=== PATIENT | male | born 1980 | race Caucasian/White ===

== ENCOUNTER 2021-04-21 13:15 | Emergency (ER) | payer SELFPAY ==
[~2021-04-21] VITALS: Ht 180.3 cm; Wt 77.3 kg
[2021-04-21 15:55] LABS: BASOPHILS % (AUTO) 0.4 % (0-1); EOSINOPHILS # (AUTO) 0.1 X10'3 (0-0.9); EOSINOPHILS % (AUTO) 1.3 % (0-6); HEMATOCRIT 47.1 % (42.0-52.0); HEMOGLOBIN 16.6 g/dl (14.0-17.9); LYMPHOCYTES # (AUTO) 1.9 X10'3 (1.1-4.8); LYMPHOCYTES % (AUTO) 24.5 % (21-51); MEAN CORPUSCULAR HEMOGLOBIN 32.3 PG (27.0-31.0); MEAN CORPUSCULAR HGB CONC 35.3 g/dL (33.0-36.5); MEAN CORPUSCULAR VOLUME 91.5 FL (78-98); MEAN PLATELET VOLUME 8.7 FL (7.4-10.4); MONOCYTES # (AUTO) 0.5 X10'3 (0-0.9); MONOCYTES % (AUTO) 6.7 % (2-12); NEUTROPHILS # (AUTO) 5.2 X10'3 (1.8-7.7); NEUTROPHILS % (AUTO) 67.1 % (42-75); PLATELET COUNT 240 X10'3 (140-440); RED BLOOD COUNT 5.15 X10'6 (4.70-6.10); RED CELL DISTRIBUTION WIDTH 12.9 % (11.5-14.5); WHITE BLOOD COUNT 7.8 X10'3 (4.5-11.0)
[2021-04-21 16:08] LABS: ALANINE AMINOTRANSFERASE 36 U/L (12-78); ALBUMIN 4.3 G/DL (3.4-5.0); ALBUMIN/GLOBULIN RATIO 1.3 (1.1-1.5); ALKALINE PHOSPHATASE 61 IU/L (46-116); ANION GAP 9 (8-16); ASPARTATE AMINO TRANSFERASE 19 U/L (10-37); BILIRUBIN,TOTAL 0.7 MG/DL (0.1-1.0); BLOOD UREA NITROGEN 15 MG/DL (7-18); CALCIUM 8.8 MG/DL (8.5-10.1); CHLORIDE 103 MMOL/L (99-107); CREATININE 0.88 MG/DL (0.60-1.10); GLUCOSE 85 MG/DL (70-104); POTASSIUM 4.4 MMOL/L (3.5-5.1); SODIUM 140 MMOL/L (135-145); TOTAL CARBON DIOXIDE 28.5 MMOL/L (24-32); TOTAL PROTEIN 7.7 G/DL (6.4-8.2); eGFR > 90 ML/MIN
[2021-04-21 16:39] VITALS: BP 116/72
[2021-04-21 17:06] LABS: C-REACTIVE PROTEIN 0.08 MG/DL (0.0-0.5)
[2021-04-21] MEDS ORDERED: iohexol 300mg/ml 100ml inj. ONE (17:06)
== END 2021-04-21 18:11 | disposition home or self-care (01) ==
LOC: ER 13:15
DX: R22.1 Localized swelling, mass and lump, neck (principal)
CPT/HCPCS: 36415; 70491; 80053; 85025; 85651; 86140; 99285; Q9967

== ENCOUNTER 2022-02-13 06:09 | Day surgery (SDC) | payer MEDICAID ==
[2022-02-10 11:53] LABS: BASOPHILS % (AUTO) 0.6 % (0-1); EOSINOPHILS # (AUTO) 0.1 X10'3 (0-0.9); EOSINOPHILS % (AUTO) 1.6 % (0-6); LYMPHOCYTES # (AUTO) 1.6 X10'3 (1.1-4.8); LYMPHOCYTES % (AUTO) 21.7 % (21-51); MEAN CORPUSCULAR HEMOGLOBIN 31.5 PG (27.0-31.0); MEAN CORPUSCULAR HGB CONC 34.8 g/dL (33.0-36.5); MEAN CORPUSCULAR VOLUME 90.5 FL (78-98); MEAN PLATELET VOLUME 8.6 FL (7.4-10.4); MONOCYTES # (AUTO) 0.6 X10'3 (0-0.9); MONOCYTES % (AUTO) 7.3 % (2-12); NEUTROPHILS # (AUTO) 5.2 X10'3 (1.8-7.7); NEUTROPHILS % (AUTO) 68.8 % (42-75); PRE OP HEMATOCRIT 45.2 % (42.0-52.0); PRE OP HEMOGLOBIN 15.7 g/dL (14.0-17.9); PRE OP PLATELET COUNT 215 X10'3 (140-440); RED BLOOD COUNT 4.99 X10'6 (4.70-6.10); RED CELL DISTRIBUTION WIDTH 12.3 % (11.5-14.5)
[2022-02-10 12:05] LABS: ALBUMIN/GLOBULIN RATIO 1.1 (1.1-1.5); ALKALINE PHOSPHATASE 78 IU/L (46-116); BLOOD UREA NITROGEN 14 MG/DL (7-18); BUN/CREATININE RATIO 13.5 (5.4-32.0); CALCIUM 8.7 MG/DL (8.5-10.1); CHLORIDE 102 MMOL/L (99-107); CREATININE 1.04 MG/DL (0.60-1.10); PRE OP ALT 21 U/L (30-65); PRE OP ANION GAP 8 (8-16); PRE OP AST 15 U/L (10-37); PRE OP BILIRUB, TOTAL 0.4 MG/DL (0.0-1.0); PRE OP GLUCOSE 87 MG/DL (70-104); PRE OP POTASSIUM 4.1 MMOL/L (3.4-5.1); PRE OP SODIUM 139 MMOL/L (135-145); TOTAL CARBON DIOXIDE 28.8 MMOL/L (24-32); TOTAL PROTEIN 7.5 G/DL (6.4-8.2); eGFR 80 ML/MIN
[2022-02-13] VITALS (11 sets, daily range): BP systolic 108–162; BP diastolic 66–107
[~2022-02-13] VITALS: Ht 180.3 cm; Wt 77.2 kg
[~2022-02-13 06:09] MED LIST: HYDR-3972; ceFAZolin inj. 2,000 MG in dextrose 5%-water 100 ML IV ONE; famotidine 20mg tablet PO ONE; ringers solution, lacted 1,000 ML IV SCH
[2022-02-13] MEDS ORDERED: BUPIVAcaine/PF 2.5 mg/ml (0.25%) 30ml vial ONE (06:34)
[2022-02-13] MEDS ORDERED: ringers solution, lacted 1,000 ML IV SCH (06:45)
[2022-02-13] MEDS ORDERED: hydrALAZINE 20mg/ml inj. IV PRN (06:45)
[2022-02-13] MEDS ORDERED: morphine 2 MG/ML inj. syringe IV PRN (06:45)
[2022-02-13] MEDS ORDERED: fentaNYL/PF 50MCG/1 ML 2ML syringe IV PRN ×2 (06:45)
[2022-02-13] MEDS ORDERED: morphine 4 MG/ML inj SYRINge IV PRN (06:45)
[2022-02-13] MEDS ORDERED: ondansetron/PF 4mg/2ml inj IV PRN (06:45)
[2022-02-13] MEDS ORDERED: labetalol 20mg/4ml (5mg/ml) syringe IV PRN (06:45)
[2022-02-13 07:42] LABS: CLARITY,URINE CLEAR (Clear); COLOR,URINE YELLOW (Yellow); GLUCOSE, URINE NEGATIVE (Neg); KETONES,URINE NEGATIVE (Neg); LEUKOCYTE ESTERASE ,URINE NEGATIVE (Neg); NITRITES, URINE NEGATIVE (Neg); OCCULT BLOOD,URINE NEGATIVE (Neg); PROTEIN,URINE NEGATIVE (Neg); UROBILINOGEN,URINE 0.2 E.U/dL (0.2-1.0)
[2022-02-13 07:48] LABS: UA COLLECTION TYPE CLN CATCH MIDSTREAM
[2022-02-13] MEDS ORDERED: fentaNYL/PF 50MCG/1 ML 2ML syringe ONE (07:48)
[2022-02-13] MEDS ORDERED: MIDAZolam 1 MG/ML 5ML VIAL ONE (07:48)
[2022-02-13] MEDS ORDERED: acetaminophen 1,000mg/100ml IV 100 ML IV ONE (07:48)
[2022-02-13] MEDS ORDERED: LIDOcaine 2% (20mg/ml) 5ml vial ONE (07:49)
[2022-02-13] MEDS ORDERED: ondansetron/PF 4mg/2ml inj ONE (07:49)
[2022-02-13] MEDS ORDERED: propofol inj 20 ML IV ONE (07:49)
[2022-02-13 07:58] LABS: PRE OP PROTIME 10.5 SECONDS (9.0-12.0)
[2022-02-13] MEDS ORDERED: sevoflurane 250ml liquid IH ONE (08:28)
[2022-02-13] MEDS ORDERED: dexamethasone sod phosphate 10mg/ml inj ONE (08:28)
--- NOTE | 2022-02-13 10:19 | NUR ---
Received from OR via [facility], accompanied by Anesthesiologist DR LOPEZ and report given by Anesthesiolgist. PT PRESENTS WITH PIV 20G LEFT HAND. DRESSING ON LEFT AXILLARY CDI, VSS. Addendum: 02/13/22 at 1032 by Clarissa Burrows RN, RN Amended: Links added.
--- NOTE | 2022-02-13 11:23 | NUR ---
PT SITTIN UP ON BED EATING RENU CRACKERS AND DRINKING WATER.
[2022-02-13] MEDS ORDERED: HYDROcodone/acetaminophen 10/325mg tab PO ONE (11:30)
--- NOTE | 2022-02-13 11:49 | NUR ---
ALL DISCHARGE CRITERIA HAS BEEN MET. VSS, PAIN AT A TOLERABLE LEVEL, VOIDING AND ABLE TO SAFELY AMBULATE AND TRANSFER SELF. IV TAKEN OUT WITHOUT ANY COMPLICATIONS. ALL DISCHARGE INSTRUCTIONS COVERED WITH PATIENT AND ALL QUESTIONS ANSWERED. PATIENT TAKEN OUT VIA WHEELCHAIR TO PERSONAL VEHICLE WHERE FAMILY/FRIEND DROVE PATIENT HOME. Addendum: 02/13/22 at 1204 by Clarissa Burrows RN, RN Amended: Links added.
== END 2022-02-13 11:49 | disposition home or self-care (01) ==
LOC: PAS 06:09
PROVIDERS: ATTEND Surgery
DX: C43.59 Malignant melanoma of other part of trunk (principal); Z79.899 Other long term (current) drug therapy; Z79.01 Long term (current) use of anticoagulants; F17.210 Nicotine dependence, cigarettes, uncomplicated; Z98.890 Other specified postprocedural states
CPT/HCPCS: 36415; 38525; 71250; 74176; 80053; 81003; 82948; 85025; 85610; 85730; 86885; 86900; 86901; 87811; 93005; J0131; J0690; J1100; J2250; J2405; J2704; J3010; J3490; J7030; J7060; J7120; Z7506; Z7508; Z7512; 70490; A4618; A6449; A7000